=== PATIENT | female | born 2000 | race Caucasian/White ===

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

== ENCOUNTER 2019-04-16 10:30 | Outpatient (RCR) | payer BC, SELFPAY ==
--- NOTE | 2019-04-03 09:58 | HP.PTEVAL_ITS ---
Patient's Visit Information GLEN MERRILL is a 18 year old F referred to Physical Therapy by Ernesto Carlos MD with a diagnosis of Mechanical back pain, SI dysfunction.. Date of Evaluation: 04/03/19 Physical Therapist: Adán Fagan, DORAT, OCS, CSCS - Visit Plan Frequency: 3x /Week Duration: 3 Weeks Plan: 3x/week for 3 weeks prior to going back to [employer] for basketball. Please work on lumbar flexion ROM and monitor effects, may do flexion rotation. Please per script and within tolerance, progress aggressive return to sport(basketball) drills starting with core strength and progressing over the next 3 weeks. 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 Will be sophomore and leaves 04/21/19. Has back problem and will nto return if it is severe. Back started hurting over a month ago insidiously. Not sure why, was hard to work out with customer service trainer. Rested for a weeka dn it felt better. Worked otu again and it got worse again. Was doing leg presses and it started hurting again. [place] [facility] as she had stress fractures in 8 th grade. He said it could b a number of things.Is to rest adn have therapy before possible MRI. Is still allowed to do 30% of workout consisting of shooting and basketball stuff but no lifting. Sleep is OK now but hard when it hurt really bad. A couple weeks ago. 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 Hurts to get up from chair. Riding in car and getting out is a problem. R sided LBP to 5/10 whe it was bad. This past weekend was 4/10 riding in car. Very little when not doing anything active. [place] [employer] [place] pain all day. No leg symptoms. - Pain R LBP Pain Intensity (Out of 10): 2 Pain Intensity Range: 1, 5 - Objective Walksnormal and trasnfersnormal today. L/S AROM flexion max limited and R LB, ext normal, SB no pain and normal. reflexes 0/3 patella and achilles. Sensation LE WNL to gross light touch. No tender to PA pressure or SI shear, negative SI testing today. Repeated muscle energy techniques in supine NE. Repeated flexion and ext L/S NE. Unstable in forward flexion with immediate pain and hesitancy. Better getting up from chair after sitting with good L/S extension. HS mod tight, quads and ITb not tight. - Goals Goal 1:: full flexion L/S without pain Goal Time Frame: 2-4 Weeks Goal 2:: Return to basketball drills at 100% without increased pain. Goal Time Frame: 2-4 Weeks Goal 3:: I approp HEP to minimize future problems. Goal Time Frame: 2-4 Weeks - Rehabilitation Potential Physical Therapy Diagnosis: LBP Rehabilitation Potential: Fair - Anticipated Interventions Patient/Client Instruction: Educate patient on: Condition, Plan of Care For the Purpose of:: To decrease pain, To increase ROM Therapeutic Exercise to Include: Strength training, Passive ROM, Active ROM, Dynamic Lumbar Stabilization Comment: sports specific For the Purpose of:: To decrease pain, To increase ROM, To improve ability of physical actions for home/community/work/leisure Thank you for the opportunity to evaluate your patient. For Medicare and Medicare HMO plans, please review the plan of care and approve it. It will need to be FAXED BACK to us at [phone] for Medicare purposes. For Medicare only, by signing this I certify the plan of care. Please let me know if there are questions or concerns regarding this plan of care. Physician Signature: Date:
--- NOTE | 2019-06-07 15:41 | HP.PT.NRP ---
HP - Discharge Summary (1) - Patient Information GLEN MERRILL was seen in my office for initial evaluation on 04/03/19. The following Plan of Care was established for this patient: Initial Frequency: 3x /Week Initial Duration: 3 Weeks - Anticipated Interventions Patient/Client Instruction: Educate patient on: Condition, Plan of Care For the Purpose of:: To decrease pain, To increase ROM Therapeutic Exercise to Include: Strength training, Passive ROM, Active ROM, Dynamic Lumbar Stabilization For the Purpose of:: To decrease pain, To increase ROM, To improve ability of physical actions for home/community/work/leisure This patient was last seen in our office 04/16/19. Pertinent comments regarding their Physical therapy will appear below: Pt seen 6 visits but cancelled her last scheduled recheck in favor of visiting doctor. She was to call but did not and at this point, it has been nearly two months adn I will discontinue due to nonattendance. At this point I will be discontinuing this patient from physical therapy. I would be happy to see this patient again in the future if found appropriate by the physician. Thank you! Adán Fagan, DPT, OCS, CSCS
== END 2019-04-16 19:00 | disposition home or self-care (01) ==
LOC: PT 10:30
PROVIDERS: Family Provider Pediatrics; PCP Pediatrics
DX: M54.9 Dorsalgia, unspecified (principal); M53.3 Sacrococcygeal disorders, not elsewhere classified
CPT/HCPCS: 97014; 97110; 97140; 97162; G0283

== ENCOUNTER 2020-08-09 14:48 | Emergency (ER) | payer BC, SELFPAY ==
[2020-08-09 14:49] VITALS: BP 113/67; PULSE 75; RESP 16; TEMP 35.8; O2SAT 100; BMI 24.2
--- NOTE | 2020-08-09 14:53 | ED.VIS.GEN ---
History of Present Illness Chief Complaint: Other, Pain/Inj Informant: Patient Narrative: 19-year-old female presenting with nasal bone injury. She states she was playing basketball this morning and struck her face on another player's head. She did not get knocked out. She has no dizziness or lightheadedness.She states she has been otherwise healthy. Patient does not states she has bruising around her nose and eye on the right. She states her left nare seems to be more stuffy. Past Medical History - Allergies and Home Meds Allergies/Adverse Reactions: Allergies No Known Allergies Allergy (Verified 08/09/20 14:49) Primary Care Physician: Yunior Eli DO [Primary Care Provider] - Prior records reviewed: Yes Past Medical History: None Surgical History: noncontributory Lives: With Family Smoking Status: Never smoker Alcohol: None Drugs: None Review of Systems General: Denies: Chills, Fever, Sweats Eyes: Denies: Visual changes - bilaterally, Diplopia ENT: Reports: - - Nasal bone contusion with bruising, difficulty breathing through left nare.. Denies: Sore throat Respiratory: Denies: Dyspnea, Cough, Dyspnea on exertion Gastrointestinal: Denies: Abdominal pain, Nausea, Vomiting, Diarrhea, Melena, Hematochezia Genitourinary: Denies: Dysuria, Hematuria, Frequency Musculoskeletal: Denies: Back pain, Extremity Pain Skin: Reports: - - Bruising and swelling to the nasal bone. Denies: Rash, Abscess Neurological: Reports: Headache. Denies: Parasthesia, Numbness Psych: Denies: Depression, Anxiety Physical Exam Vital Signs/Narrative: Vital Signs Temp Pulse Resp BP Pulse Ox 08/09/20 14:49 96.5 F L 75 16 113/67 100 Inital Vital Signs reviewed: Yes General: Well nourished, No Acute Distress Head: Normocephalic Eyes: Perrl, EOMI ENT: Moist mucous membranes, Nasal congestion, - - Bruising over the superior aspect of the nasal bone and swelling into the right medial nose with bruising Cardiovascular: Regular rate, Regular rhythm Respiratory: No distress, CTA bilaterally Back: Nontender, Normal Inspection Skin: - - Nasal bone swelling and bruising. Negative for: No rash Neurological: Alert, Oriented x3 Psychological: Normal affect, Normal Mood Diagnostic/Tx/Re-eval Chest X-Ray - ED: 1 View Clinical Impression(s) from Imaging Studies Nasal Bones X-Ray 08/09/20 15:03 IMPRESSION: No demonstrated fracture. Electronically Signed: Fercho Lucas MD ([place]) at 15:26 EST , Service support , - Medical Decision Making 19-year-old female presenting with nasal bone contusion and bruising over the nose and medial aspect right thigh. Nose does appear to be slightly to the left. Septum appears to be deviated to the left slightly. X-ray of the nasal bones shows no acute fracture. Patient will be given ENT for follow-up. Impression: 1. Nasal bone contusion ED Disposition - Plan for ED Patient: Disposition: Home or Assisted Living Instructions: ED Nasal Contusion Referrals: Yunior Eli DO [Primary Care Provider] - Jaya Ashley MD [STAFF PHYSICIAN] -
--- NOTE | 2020-08-09 15:03 | RAD_ITS ---
STUDY: X-RAY - NASAL BONES REASON FOR EXAM: Female, 19 years old. RAN INTO SOMEONE THIS AM, NOSE BRUISING AND PAIN TECHNIQUE: 3 view(s) of the nasal bones. COMPARISON: None. FINDINGS: Normal nasal bones. Normal anterior nasal spine. There is no demonstrated soft tissue swelling. The remaining visualized osseous structures are normal. Normal visualized paranasal sinuses. RAD/Nasal Bones min 3 Views IMPRESSION: No demonstrated fracture. Electronically Signed: Fercho Lucas MD ([place]) at 15:26 EST , Service support ,
== END 2020-08-09 15:47 | disposition home or self-care (01) ==
PROVIDERS: Emergency Provider Student in an Organized Health Care Education/Training Program; PCP Pediatrics
DX: S00.33XA Contusion of nose, initial encounter (principal); W50.0XXA Accidental hit or strike by another person, initial encounter; Y93.67 Activity, basketball; Y92.9 Unspecified place or not applicable
CPT/HCPCS: 70160; 99282

== ENCOUNTER 2020-08-19 06:01 | Day surgery (SDC) | payer BC, SELFPAY ==
[2020-08-19 06:49] LABS: Internal QC Validated? YES +Cl - CLEAR BKGD; Pregnancy, Urine Negative Negative
[2020-08-19] MEDS: Oxymetazoline 0.05% 1 SPRAY SPRAY.BTL 15 SPRAY (06:51)
[2020-08-19 06:54] VITALS: BP 114/63; PULSE 81; RESP 14; TEMP 36; O2SAT 100; BMI 24.3
[2020-08-19] MEDS: Lactated Ringers 1,000 ML 100 ML IV (07:08)
--- NOTE | 2020-08-19 07:29 | DCINST_ITS ---
You will use the following diet at home:: No restrictions Discharge Activity: Return to Normal Activity Call your doctor if your incision/area has: Increased Pain/ Swelling Allergies/Adverse Reactions: Allergies No Known Allergies Allergy (Verified 08/18/20 11:37) Medications to take at Discharge No Known/Unobtainable [No Known Home Medications] 10/15/14 Primary Care Physician: Yunior Eli DO [Primary Care Provider] - Test Results: Test results from this visit will be discussed in further detail at your follow- up appointment, if applicable. Please Follow Up With: Jaya Ashley MD When: 1 week
--- NOTE | 2020-08-19 07:30 | PCM.OPRPT ---
Problem List (1) Nasal bone fracture Status: Acute Report of Operation Date of Procedure: 08/19/20 Pre-Operative Diagnosis: nasal bone fracture Post-Operative Diagnosis: nasal bone fracture Surgery/Procedure Performed:: closed reduction nasal bone fracture Type of Anesthesia:: General Description of Procedure: on the day of the procedure, after appropriate informed consent was obtained, the patient was brought to the operating room and placed in supine position on the operating table. she was placed under general endotracheal anesthesia by the anesthesiologist. the nose was decongested with oxymetazoline-soaked pledgets. the right nasal bone was lateralized with digital pressure and a boies elevator; the left nasal bone was medialized with digital pressure. a merocel was placed high in the right nasal valve to keep the right nasal bone lateralized. a dorsal nasal splint was placed. she was awoken and transferred to the PACU in stable condition.
[2020-08-19 07:51] VITALS: BP 114/63; BP 119/63; PULSE 78; RESP 16; TEMP 36.4; O2SAT 100
[2020-08-19 08:00] VITALS: BP 114/63; BP 116/66; PULSE 72; RESP 16; O2SAT 98
[2020-08-19 08:15] VITALS: BP 110/60; BP 114/63; PULSE 56; RESP 16; O2SAT 99
[2020-08-19 08:23] VITALS: BP 101/62; BP 114/63; PULSE 60; RESP 16; TEMP 36.6; O2SAT 100
[2020-08-19] MEDS: Acetaminophen 325 MG Tablet 650 MG PO (08:37)
[2020-08-19 09:30] VITALS: BP 114/63; BP 115/65; PULSE 69; RESP 18; TEMP 37.1; O2SAT 98
== END 2020-08-19 09:34 | disposition home or self-care (01) ==
LOC: SDC 06:02 → AC 06:03
PROVIDERS: Anesthesiology; PCP Pediatrics; Referring Provider Otolaryngology; Visit Provider Otolaryngology
PROC: 0NSBXZZ Reposition Nasal Bone, External Approach (ICD-10-PCS; CPT 21315; principal; 2020-08-19 07:25)
DX: S02.2XXA Fracture of nasal bones, initial encounter for closed fracture (principal)
CPT/HCPCS: 21315; 81025; J7120; J2405

== ENCOUNTER 2021-06-06 21:24 | Emergency (ER) | payer OTHER, SELFPAY ==
[2021-06-06 21:26] VITALS: BP 139/80; PULSE 67; RESP 18; TEMP 36.6; O2SAT 100; BMI 24.2
--- NOTE | 2021-06-06 21:48 | RAD_ITS ---
STUDY: X-RAY CHEST REASON FOR EXAM: Female, 20 years old. Chest pain/pressure TECHNIQUE: Single AP portable view of the chest. COMPARISON: 2011 FINDINGS: The lungs are clear and expanded. There is no demonstrated pleural abnormality. Normal size heart. Normal mediastinum and farida. Normal visualized pulmonary arteries. Normal visualized aortic arch and descending thoracic aorta. Normal visualized thoracic spine. Normal visualized ribs, clavicles, and shoulders. There is no demonstrated abnormality of the visualized soft tissue structures of the upper abdomen. RAD/Chest 1 View (Portable) IMPRESSION: Normal x-ray examination of the chest. Electronically Signed: Dao Morgan MD at 23:00 EDT , Service support ,
[2021-06-06] MEDS: Ibuprofen 600 MG Tablet PO (23:07)
--- NOTE | 2021-06-06 23:15 | EX.ED.DYSGE1 ---
HPI History of Present Illness Chief Complaint: Cold Sx Informant: patient Narrative Narrative: Patient is a 20-year-old female presenting with left-sided chest pain. Patient states it behind her left breast. Does not radiate. Is worse with movement. She states she reached to grab a blanket when suddenly she felt pain in that area. Initially it was quite severe but then subsided. It is now been more constant. Is worse when she takes a deep breath air is laying down. She notes she has had some chest congestion for the past week with cough, runny nose, and mild sore throat. 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 She is not had any fever or chills. Denies any difficulty breathing. She not taking thing for symptoms prior to arrival. Denies any GI or symptoms. She denies any history of DVT or PE. She is not on any estrogen supplements including control. Denies any leg swelling or recent immobilization. PFSH PFSH Home Medications ibuprofen 600 mg PO Q6H PRN PRN #20 tab 06/06/21 [Rx Last Taken Unknown] Allergy/AdvReac Type Severity Reaction Status Date / Time No Known Allergies Allergy Verified 06/06/21 21:30 Social History Smoking Status: Never smoker ROS ROS ED Constitutional Constitutional ED: Denies chills or fever(s) Eyes Eyes: Denies change in vision ENT ENT ED: Reports rhinorrhea and sore throat; Denies ear pain Cardiovascular Cardiovascular: Reports chest pain; Denies palpitations Respiratory/Chest Respiratory/Chest: Denies cough, dyspnea or dyspnea on exertion Gastrointestinal Gastrointestinal: Denies abdominal pain, diarrhea, nausea or vomiting Genitourinary Genitourinary ED: Denies dysuria Musculoskeletal Musculoskeletal: Denies arthralgias or myalgias Integumentary Denies rash Neurologic Neurologic: Denies headache(s) or weakness Psychiatric Psychiatric: Denies depression EXAM Physical Exam Const Vital Signs: 06/06/21 21:26 Temperature 97.8 F Temperature Source Temporal Pulse Rate 67 Respiratory Rate 18 Blood Pressure 139/80 H Blood Pressure Mean 99 Pulse Ox 100 Oxygen Delivery Method Room Air Positive well nourished and well developed General Appearance ED: well developed HEENT Reports TM's clear and moist mucous membranes HEENT Narrative: Slightly swollen tonsils bilaterally, right slightly greater than left. Uvula is midline. No trismus or muffled voice. Negative for trauma Tympanic Membrane ED: Yes TM's clear Eyes PERRL and EOMs intact bilaterally Neck no lymphadenopathy, supple and no JVD Chest Wall inspection of chest normal and palpation of chest normal Resp normal respiratory effort and clear to auscultation bilaterally Cardio regular rate, regular rhythm and no murmurs GI normal to inspection, nondistended, normoactive bowel sounds and non-tender Extremity normal to inspection General Extremety ED: Negative for edema or tenderness General Extremity: Negative for edema Neuro oriented x3 Sensorium / Orientation: alert Motor Exam: Negative for general weakness Psych mental status grossly normal Skin no rashes or lesions noted MDM MDM MDM Narrative Medical decision making narrative: Patient is evaluated for chest wall pain. She appears nontoxic in no acute distress. Vital signs are normal. She is low risk for PE and she is PE RC negative. Chest x-ray does not show any acute infiltrate, pneumothorax, rib fracture or any other abnormalities. Covid swab is negative. I suspect patient has costochondritis or chest wall strain. She is given Motrin for pain control. She is counseled on NSAID therapy and importance of deep breathing to prevent pneumonia. At this time I do not think further testing is indicated. Patient is counseled on signs and symptoms requiring return to the emergency room. Patient verbalizes agreement and understand this plan. I feel that she is stable for outpatient follow-up. Patient discharged home in stable and improved condition. Lab Data Attestation: I reviewed the patient's lab results. Radiography Diagnostic Testing: Clinical Impression(s) from Imaging Studies Chest X-Ray 06/06/21 21:48 IMPRESSION: Normal x-ray examination of the chest. Electronically Signed: Dao Morgan MD at 23:00 EDT , Service support , Discharge Plan Triage Chief Complaint: Cold Sx ED Provider: Sara Jackson Dx/Rx/DC Orders Clinical Impression: Acute chest wall pain, URI (upper respiratory infection) Instructions: ED Chest Pain, Noncardiac, ED URI, Viral, No Abx (Adult) Prescriptions: New ibuprofen 600 mg tablet 600 mg PO Q6H PRN PRN (Reason: Pain Score 1-10/10) Qty: 20 RF: 0 Primary Care Provider: Yunior Eli Referrals: Yunior Eli DO [Primary Care Provider] - Disposition Disposition: Home, Self Care
== END 2021-06-06 23:34 | disposition home or self-care (01) ==
PROVIDERS: Emergency Provider Emergency Medicine; PCP Pediatrics
DX: J06.9 Acute upper respiratory infection, unspecified (principal); R07.89 Other chest pain
CPT/HCPCS: 71045; 87426; 99283